=== PATIENT | female | born 1955 | race Caucasian/White ===

== ENCOUNTER 2016-11-10 11:44 | Emergency (ER) | payer BC | END 2016-11-10 13:35 | disposition home or self-care (01) | LOC: ER1 11:44 | DX: S52.572A Other intraarticular fracture of lower end of left radius, initial encounter for closed fracture (principal); W01.0XXA Fall on same level from slipping, tripping and stumbling without subsequent striking against object, initial encounter; Y92.009 Unspecified place in unspecified non-institutional (private) residence as the place of occurrence of the external cause | CPT/HCPCS: 29125; 73090; 73110; 99283 ==

== ENCOUNTER → 2016-11-29 | Day surgery (SDC) | payer BC ==
[~2016-11-29] VITALS: Ht 160 cm; Wt 55.8 kg
== END | disposition home or self-care (01) ==
LOC: OR 11:16
PROVIDERS: Orthopaedic Surgery
PROC: 0PSJ34Z Reposition Left Radius with Internal Fixation Device, Percutaneous Approach (ICD-10-PCS; principal; 2016-11-29 19:00)
DX: S52.502A Unspecified fracture of the lower end of left radius, initial encounter for closed fracture (principal); M81.0 Age-related osteoporosis without current pathological fracture; Z79.899 Other long term (current) drug therapy; W01.0XXA Fall on same level from slipping, tripping and stumbling without subsequent striking against object, initial encounter
CPT/HCPCS: 73110; 76000; J0690; J1885; J2250; J3010; J7120

== ENCOUNTER → 2016-12-04 | Outpatient (CLI) | payer BC | LOC: KOH-I 13:00 | DX: Z13.820 Encounter for screening for osteoporosis (principal); M85.88 Other specified disorders of bone density and structure, other site; Z78.0 Asymptomatic menopausal state | CPT/HCPCS: 77080 ==

== ENCOUNTER 2020-12-07 09:53 | Emergency (ER) | payer OTHER ==
[2020-12-07] MEDS ORDERED: VIBRAMYCIN 100100 MG PO (11:16)
== END 2020-12-07 11:24 | disposition home or self-care (01) ==
LOC: ER1 09:53
DX: L03.115 Cellulitis of right lower limb (principal)
CPT/HCPCS: 85379; 99283